=== PATIENT | female | born 1975 | race American Indian/Alaskan Native ===

== ENCOUNTER 2020-02-08 19:38 | Emergency (ER) | payer SELFPAY ==
[2020-02-08 20:08] VITALS: BP 131/90
== END 2020-02-08 22:45 | disposition left against medical advice (07) ==
LOC: ED 19:38
DX: R10.2 Pelvic and perineal pain (principal); Z53.21 Procedure and treatment not carried out due to patient leaving prior to being seen by health care provider

== ENCOUNTER 2020-02-12 07:49 | Emergency (ER) | payer SELFPAY ==
[2020-02-12 09:15] LABS: Bilirubin,Urine NEG (Negative); Blood,Urine MOD (Negative); Calcium Oxalate Crystals,Urine 2+; Color,Urine Yellow (Yellow); Mucus,Urine FEW /HPF; Protein,Urine <15 mg/dL mg/dL (Negative); Trichomonas,Urine FEW /HPF; Urobilinogen,Urine < 2.0 mg/dL (<2.0)
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
== END 2020-02-12 09:45 | disposition home or self-care (01) ==
LOC: ED 07:49
DX: N39.0 Urinary tract infection, site not specified (principal); J45.909 Unspecified asthma, uncomplicated; F17.200 Nicotine dependence, unspecified, uncomplicated; Z79.899 Other long term (current) drug therapy; Z90.710 Acquired absence of both cervix and uterus; Z98.890 Other specified postprocedural states
CPT/HCPCS: 81001; 87086; 99283